=== PATIENT | male | born 1970 | race Hispanic/Latino ===

== ENCOUNTER 2020-12-16 17:46 | Inpatient (IN) | payer MEDICARE, OTHER ==
[~2020-12-16] VITALS: Ht 167.6 cm; Wt 89.8 kg
[2020-12-16] MEDS ORDERED: MORPHINE SULFATE INJ 4 MG/ML INJ 1ML IV STA (18:38)
[2020-12-16] MEDS ORDERED: ONDANSETRON HCL INJ 2MG/ML 2ML 2 MG/ML VIAL IV STA (18:38)
[2020-12-16] MEDS ORDERED: DIATRIZOATE MEGL/DIATRIZOA SOD 30 ML BTL PO ONE (18:50)
[2020-12-16 19:10] LABS: BASOPHILS # (AUTO) 0.1 (0.0-0.1); BASOPHILS % 0.7 % (0.0-1.0); EOSINOPHILS # (AUTO) 0.2 (0.0-0.4); EOSINOPHILS % 1.9 % (0.0-6.0); HEMATOCRIT 32.2 % (38.2-49.6); HEMOGLOBIN 10.6 g/dL (14.0-18.0); LYMPHOCYTES # (AUTO) 1.7 (1.0-3.2); LYMPHOCYTES % 19.5 % (18.0-39.1); MEAN CORPUSCULAR HGB CONC 32.9 g/dL (31-35); MONOCYTES # (AUTO) 0.4 (0.2-0.8); MONOCYTES % 5.2 % (4.4-11.3); NEUTROPHILS # (AUTO) 6.1 (2.1-6.9); NEUTROPHILS % 72.3 % (38.7-80.0); PLATELET COUNT 173 x10e3/uL (140-360); RED BLOOD COUNT 3.66 x10e6/uL (4.3-5.7); RED CELL DISTRIBUTION WIDTH 12.8 % (11.7-14.4)
[2020-12-16 19:25] LABS: AMYLASE 100 U/L (25-125); LIPASE 124 U/L (8-78)
[2020-12-16 19:29] LABS: ALBUMIN 3.4 g/dL (3.5-5.0); CALCIUM 7.5 mg/dL (8.4-10.2); CREATININE, SERUM 6.85 mg/dL (0.72-1.25)
[2020-12-16] MEDS: SODIUM CHLORIDE FLUSH 10 ML SYR INJ PRN ×3 (19:45→23:50)
[2020-12-16 20:29] LABS: CLARITY,URINE SL CLOUDY (CLEAR); COLOR,URINE YELLOW (YELLOW); KETONES,URINE NEGATIVE (NEGATIVE); LEUKOCYTE ESTERASE ,URINE NEGATIVE (NEGATIVE); NITRITE,URINE NEGATIVE (NEGATIVE); PROTEIN,URINE DIPSTICK >=300 (NEGATIVE); URINE UROBILINOGEN 0.2 mg/dL (0.2 - 1)
[2020-12-16 20:43] LABS: BACTERIA,URINE RARE /HPF; EPITHELIAL CELLS,URINE RARE /LPF; WBC,URINE (MAN) 0-5 /HPF (0-5)
[2020-12-16] MEDS ORDERED: DEXTROSE 50% SYRINGE 50 ML IV PRN (21:30)
[2020-12-16] MEDS: CEFEPIME HCL 1GM 1 GM in SODIUM CHLORIDE 0.9% 50ML 50 ML IV SCH (22:13)
[2020-12-16] MEDS: VANCOMYCIN 1GM/NS 250 ML 250 ML IV SCH (22:14)
[2020-12-16] MEDS ORDERED: SODIUM CHLORIDE 0.9% 250ML 250 ML ONE (22:18)
[2020-12-16] MEDS ORDERED: CEFEPIME HCL 1 GM VIAL ONE (22:21)
[2020-12-16] MEDS: ONDANSETRON HCL INJ 2MG/ML 2ML 2 MG/ML VIAL IV PRN (23:59)
[2020-12-16] MEDS: MORPHINE SULFATE INJ 2 MG/ML SYR IV PRN (23:59)
[2020-12-17] MEDS: MORPHINE SULFATE INJ 2 MG/ML SYR IV PRN ×2 (04:55→09:25)
[2020-12-17] MEDS: ONDANSETRON HCL INJ 2MG/ML 2ML 2 MG/ML VIAL IV PRN (04:55)
[2020-12-17] MEDS: INSULIN REGULAR, HUMAN 100 UNIT/1 ML 3ML VIAL SQ SCH ×4 (07:19→20:42)
[2020-12-17] MEDS: CEFEPIME HCL 1GM 1 GM in SODIUM CHLORIDE 0.9% 50ML 50 ML IV SCH ×2 (09:25→21:04)
[2020-12-17] MEDS ORDERED: HYDRALAZINE HCL 20 MG/ML VIAL IV PRN (10:15)
[2020-12-17] MEDS ORDERED: ACETAMINOPHEN 325 MG TAB PO PRN (10:15)
[2020-12-17 14:41] LABS: BODY FLUID APPEARANCE CLEAR; BODY FLUID COLOR YELLOW; BODY FLUID TYPE PERITONEAL
[2020-12-17 17:01] LABS: RBC,BODY FLUID < 2000 cells/uL; WBC,BODY FLUID 52 cells/uL
[2020-12-17] MEDS: MORPHINE SULFATE INJ 4 MG/ML INJ 1ML IV PRN ×2 (17:56→21:59)
[2020-12-17] MEDS: FAMOTIDINE 20 MG TAB PO SCH (17:56)
[2020-12-17 18:20] VITALS: BP 137/90
[2020-12-17 19:28] LABS: EOSINOPHILS,BODY FLUID 6 %; LYMPHOCYTES,BODY FLUID 8 %; NEUTROPHILS,BODY FLUID 18 %
[2020-12-17 20:16] LABS: OTHER CELLS,BODY FLUID 68 %
[2020-12-17 20:34] VITALS: BP 158/94
[2020-12-17 20:40] VITALS: BP 158/94
[2020-12-17] MEDS ORDERED: MELATONIN 5 MG TABLET PO PRN (21:00)
[2020-12-17] MEDS ORDERED: SODIUM CHLORIDE 0.9% 250ML 250 ML ONE (21:01)
[2020-12-17] MEDS: VANCOMYCIN 1GM/NS 250 ML 250 ML IV SCH (21:59)
[2020-12-18] VITALS (8 sets, daily range): BP systolic 132–163; BP diastolic 87–95
[2020-12-18] MEDS: MORPHINE SULFATE INJ 4 MG/ML INJ 1ML IV PRN ×4 (03:13→20:17)
[2020-12-18 05:45] LABS: BASOPHILS # (AUTO) 0.1 (0.0-0.1); BASOPHILS % 1.3 % (0.0-1.0); EOSINOPHILS # (AUTO) 0.3 (0.0-0.4); EOSINOPHILS % 3.6 % (0.0-6.0); HEMATOCRIT 32.8 % (38.2-49.6); HEMOGLOBIN 10.6 g/dL (14.0-18.0); LYMPHOCYTES # (AUTO) 1.9 (1.0-3.2); LYMPHOCYTES % 26.5 % (18.0-39.1); MEAN CORPUSCULAR HGB CONC 32.3 g/dL (31-35); MEAN CORPUSCULAR VOLUME 89.9 fL (81-99); MONOCYTES # (AUTO) 0.6 (0.2-0.8); MONOCYTES % 8.3 % (4.4-11.3); NEUTROPHILS # (AUTO) 4.3 (2.1-6.9); NEUTROPHILS % 60.2 % (38.7-80.0); PLATELET COUNT 140 x10e3/uL (140-360); RED BLOOD COUNT 3.65 x10e6/uL (4.3-5.7); RED CELL DISTRIBUTION WIDTH 12.7 % (11.7-14.4)
[2020-12-18 06:22] LABS: ALBUMIN 3.2 g/dL (3.5-5.0); CALCIUM 7.3 mg/dL (8.4-10.2); CREATININE, SERUM 6.28 mg/dL (0.72-1.25); MAGNESIUM 1.7 MG/DL (1.3-2.1)
[2020-12-18] MEDS: INSULIN REGULAR, HUMAN 100 UNIT/1 ML 3ML VIAL SQ SCH ×4 (07:30→19:55)
[2020-12-18] MEDS: CEFEPIME HCL 1GM 1 GM in SODIUM CHLORIDE 0.9% 50ML 50 ML IV SCH ×2 (08:14→21:56)
[2020-12-18] MEDS: FAMOTIDINE 20 MG TAB PO SCH ×2 (08:14→16:55)
[2020-12-18] MEDS ORDERED: LACTULOSE SYRUP 20 GM/30 ML UDC PO ONE (11:45)
[2020-12-18] MEDS: ONDANSETRON HCL INJ 2MG/ML 2ML 2 MG/ML VIAL IV PRN (20:17)
[2020-12-18] MEDS: VANCOMYCIN 1GM/NS 250 ML 250 ML IV SCH (21:56)
[2020-12-19] VITALS (8 sets, daily range): BP systolic 116–168; BP diastolic 68–92
[2020-12-19] MEDS: ONDANSETRON HCL INJ 2MG/ML 2ML 2 MG/ML VIAL IV PRN ×3 (00:45→18:47)
[2020-12-19] MEDS: MORPHINE SULFATE INJ 4 MG/ML INJ 1ML IV PRN ×3 (00:45→18:47)
[2020-12-19] MEDS: INSULIN REGULAR, HUMAN 100 UNIT/1 ML 3ML VIAL SQ SCH ×4 (07:30→21:00)
[2020-12-19] MEDS: CEFEPIME HCL 1GM 1 GM in SODIUM CHLORIDE 0.9% 50ML 50 ML IV SCH (08:57)
[2020-12-19] MEDS: FAMOTIDINE 20 MG TAB PO SCH ×2 (08:57→16:35)
[2020-12-20 00:54] VITALS: BP 160/104
[2020-12-20 01:00] VITALS: BP 160/90
[2020-12-20] MEDS: ONDANSETRON HCL INJ 2MG/ML 2ML 2 MG/ML VIAL IV PRN ×3 (01:49→09:54)
[2020-12-20] MEDS: MORPHINE SULFATE INJ 4 MG/ML INJ 1ML IV PRN ×3 (01:50→09:54)
[2020-12-20 05:59] VITALS: BP 176/90
[2020-12-20 06:17] LABS: BASOPHILS % 0.4 % (0.0-1.0); EOSINOPHILS # (AUTO) 0.2 (0.0-0.4); EOSINOPHILS % 2.6 % (0.0-6.0); HEMATOCRIT 31.1 % (38.2-49.6); HEMOGLOBIN 10.1 g/dL (14.0-18.0); LYMPHOCYTES # (AUTO) 0.9 (1.0-3.2); LYMPHOCYTES % 11.3 % (18.0-39.1); MEAN CORPUSCULAR HEMOGLOBIN 29.1 pg (28-32); MEAN CORPUSCULAR HGB CONC 32.5 g/dL (31-35); MEAN CORPUSCULAR VOLUME 89.6 fL (81-99); MONOCYTES # (AUTO) 0.7 (0.2-0.8); MONOCYTES % 8.4 % (4.4-11.3); NEUTROPHILS # (AUTO) 6.3 (2.1-6.9); NEUTROPHILS % 76.9 % (38.7-80.0); PLATELET COUNT 150 x10e3/uL (140-360); RED BLOOD COUNT 3.47 x10e6/uL (4.3-5.7); RED CELL DISTRIBUTION WIDTH 12.6 % (11.7-14.4)
[2020-12-20 07:00] LABS: ANION GAP 18.8 mmol/L (8-16); CALCIUM 7.6 mg/dL (8.4-10.2); CREATININE, SERUM 6.54 mg/dL (0.72-1.25); POTASSIUM 3.8 mmol/L (3.5-5.1)
[2020-12-20] MEDS: INSULIN REGULAR, HUMAN 100 UNIT/1 ML 3ML VIAL SQ SCH ×3 (07:30→16:19)
[2020-12-20 08:15] VITALS: BP 156/88
[2020-12-20] MEDS: FAMOTIDINE 20 MG TAB PO SCH (08:25)
[2020-12-20 09:50] VITALS: BP 156/88
[2020-12-20 11:00] VITALS: BP 156/88
== END 2020-12-20 16:56 | disposition home or self-care (01) | DRG 438 ==
LOC: ER 18:37 → ERHOLD 21:31 → MED/SURG3 12-17 15:55
PROVIDERS: ADMIT Internal Medicine; ATTEND Internal Medicine
PROC: 3E1M39Z Irrigation of Peritoneal Cavity using Dialysate, Percutaneous Approach (ICD-10-PCS; principal; 2020-12-17)
PROC: 3E1M39Z Irrigation of Peritoneal Cavity using Dialysate, Percutaneous Approach (ICD-10-PCS; 2020-12-19)
DX: K85.90 Acute pancreatitis without necrosis or infection, unspecified (principal); N18.6 End stage renal disease; I12.0 Hypertensive chronic kidney disease with stage 5 chronic kidney disease or end stage renal disease; R18.8 Other ascites; K66.8 Other specified disorders of peritoneum; E11.22 Type 2 diabetes mellitus with diabetic chronic kidney disease; Z99.2 Dependence on renal dialysis; E11.65 Type 2 diabetes mellitus with hyperglycemia; Z20.822 Contact with and (suspected) exposure to COVID-19; G47.00 Insomnia, unspecified
CPT/HCPCS: 36415; 74018; 74176; 80048; 80053; 80202; 81001; 82150; 82948; 83690; 83735; 85025; 87040; 87070; 87205; 89051; 93005; 96374; 96375; 96376; 99284; J0692; J1817; J2270; J2405; J3370; J7050; U0002

== ENCOUNTER 2022-08-24 14:54 | Inpatient (IN) | payer MEDICARE ==
[~2022-08-24] VITALS: Ht 167.6 cm; Wt 89.8 kg
[2022-08-24] MEDS ORDERED: Vancomycin IV 1 GM in SODIUM CHLORIDE 0.9% 250ML 250 ML IV ONE (15:30)
[2022-08-24] MEDS ORDERED: ONDANSETRON HCL INJ 2MG/ML 2ML 2 MG/ML VIAL IV PRN (15:30)
[2022-08-24] MEDS ORDERED: Morphine 4mg INJECTION 4 MG/ML INJ IV PRN (15:30)
[2022-08-24] MEDS ORDERED: GENTAMICIN 120MG/NS 100ML 100 ML IV ONE (15:45)
[2022-08-24 15:48] LABS: BASOPHILS % 0.2 % (0.0-1.0); EOSINOPHILS # (AUTO) 0.2 (0.0-0.4); EOSINOPHILS % 1.4 % (0.0-6.0); HEMATOCRIT 29.1 % (38.2-49.6); HEMOGLOBIN 9.1 g/dL (14.0-18.0); LYMPHOCYTES % 7.8 % (18.0-39.1); MEAN CORPUSCULAR HEMOGLOBIN 30.2 pg (28-32); MEAN CORPUSCULAR HGB CONC 31.3 g/dL (31-35); MEAN CORPUSCULAR VOLUME 96.7 fL (81-99); MONOCYTES # (AUTO) 0.9 (0.2-0.8); MONOCYTES % 6.4 % (4.4-11.3); NEUTROPHILS % 83.4 % (38.7-80.0); PLATELET COUNT 211 x10e3/uL (140-360); RED BLOOD COUNT 3.01 x10e6/uL (4.3-5.7); RED CELL DISTRIBUTION WIDTH 11.9 % (11.7-14.4)
[2022-08-24 16:07] LABS: ALANINE AMINOTRANSFERASE 38 IU/L (0-55); ALBUMIN 2.8 g/dL (3.5-5.0); ALBUMIN/GLOBULIN RATIO 0.7 (0.8-2.0); ALKALINE PHOSPHATASE 91 IU/L (40-150); ANION GAP 25.5 mmol/L (8-16); BLOOD UREA NITROGEN 47 mg/dL (7-26); BUN/CREATININE RATIO 6 (6-25); CALCIUM 9.1 mg/dL (8.4-10.2); CARBON DIOXIDE 21 mmol/L (22-29); CHLORIDE 94 mmol/L (98-107); CREATININE, SERUM 8.24 mg/dL (0.72-1.25); GLUCOSE 85 mg/dL (74-118); POTASSIUM 4.5 mmol/L (3.5-5.1); SODIUM 136 mmol/L (136-145)
[2022-08-24] MEDS ORDERED: SODIUM CHLORIDE FLUSH 10 ML SYR INJ PRN (16:45)
[2022-08-24 17:59] VITALS: BP 126/95
[2022-08-24 18:44] VITALS: BP 126/95
[2022-08-24 20:00] VITALS: BP 139/85
[2022-08-24] MEDS ORDERED: HYDRALAZINE HCL 20 MG/ML VIAL IV PRN (20:00)
[2022-08-24] MEDS ORDERED: ACETAMINOPHEN 325 MG TAB PO PRN (20:00)
[2022-08-24] MEDS: Morphine 4mg INJECTION 4 MG/ML INJ IV PRN (20:35)
[2022-08-24 22:20] VITALS: BP 139/85
[2022-08-25] VITALS (8 sets, daily range): BP systolic 116–141; BP diastolic 54–81
[2022-08-25] MEDS: Morphine 4mg INJECTION 4 MG/ML INJ IV PRN ×5 (00:42→18:32)
[2022-08-25 05:33] LABS: BASOPHILS % 0.2 % (0.0-1.0); EOSINOPHILS # (AUTO) 0.1 (0.0-0.4); EOSINOPHILS % 1.4 % (0.0-6.0); HEMATOCRIT 28.4 % (38.2-49.6); HEMOGLOBIN 8.7 g/dL (14.0-18.0); LYMPHOCYTES # (AUTO) 0.8 (1.0-3.2); LYMPHOCYTES % 9.2 % (18.0-39.1); MEAN CORPUSCULAR HEMOGLOBIN 30.5 pg (28-32); MEAN CORPUSCULAR HGB CONC 30.6 g/dL (31-35); MEAN CORPUSCULAR VOLUME 99.6 fL (81-99); MONOCYTES # (AUTO) 0.5 (0.2-0.8); MONOCYTES % 5.6 % (4.4-11.3); NEUTROPHILS # (AUTO) 7.1 (2.1-6.9); NEUTROPHILS % 83.1 % (38.7-80.0); PLATELET COUNT 188 x10e3/uL (140-360); RED BLOOD COUNT 2.85 x10e6/uL (4.3-5.7); RED CELL DISTRIBUTION WIDTH 12.2 % (11.7-14.4)
[2022-08-25 06:05] LABS: ANION GAP 23.8 mmol/L (8-16); CALCIUM 8.8 mg/dL (8.4-10.2); CREATININE, SERUM 8.39 mg/dL (0.72-1.25); POTASSIUM 4.8 mmol/L (3.5-5.1)
[2022-08-25 06:13] LABS: THYROID STIMULATING HORMONE 3.174 uIU/mL (0.350-4.940)
[2022-08-25] MEDS: ONDANSETRON HCL INJ 2MG/ML 2ML 2 MG/ML VIAL IV PRN ×3 (09:44→18:32)
[2022-08-25] MEDS: SEVELAMER CARBONATE 800 MG TAB PO SCH ×2 (12:46→17:15)
[2022-08-25] MEDS: LIDOCAINE HCL 5% OINMENT 35.44 GM TUBE TP SCH (17:00)
[2022-08-25] MEDS ORDERED: SEVELAMER CARB800 MG PO (20:39)
[2022-08-25] MEDS ORDERED: CARVEDILOL12.5 MG PO (20:39)
[2022-08-25] MEDS ORDERED: FUROSEMIDE40 MG PO (20:39)
[2022-08-25] MEDS ORDERED: CALCIUM ACETAT667 MG PO (20:39)
[2022-08-25] MEDS ORDERED: LOSARTAN POTASS25 MG PO (20:39)
[2022-08-25] MEDS ORDERED: SENSIPAR30 MG PO (20:39)
[2022-08-26] VITALS (7 sets, daily range): BP systolic 108–132; BP diastolic 65–73
[2022-08-26] MEDS: ONDANSETRON HCL INJ 2MG/ML 2ML 2 MG/ML VIAL IV PRN ×2 (02:30→06:34)
[2022-08-26] MEDS: Morphine 4mg INJECTION 4 MG/ML INJ IV PRN ×6 (02:30→22:15)
[2022-08-26] MEDS: SEVELAMER CARBONATE 800 MG TAB PO SCH ×3 (08:13→17:33)
[2022-08-26] MEDS: LIDOCAINE HCL 5% OINMENT 35.44 GM TUBE TP SCH ×2 (09:00→17:00)
[2022-08-26 10:02] LABS: ANION GAP 21.7 mmol/L (8-16); CALCIUM 8.8 mg/dL (8.4-10.2); CREATININE, SERUM 7.14 mg/dL (0.72-1.25); POTASSIUM 4.7 mmol/L (3.5-5.1)
[2022-08-26] MEDS ORDERED: SODIUM CHLORIDE 0.9% 1000ML 0 ML ONE (14:33)
[2022-08-26] MEDS ORDERED: SODIUM CHLORIDE 0.9% 1000ML 2,000 ML ONE (15:25)
[2022-08-26] MEDS ORDERED: ACETAMINOPHEN325 M1 PO (20:42)
[2022-08-26] MEDS ORDERED: ZOSYN 2.252.25 GM/50 IV (20:42)
[2022-08-26] MEDS ORDERED: Sodium Chloride Flush INJ (20:42)
[2022-08-26] MEDS ORDERED: LIDOCAINE1 EA TP (20:42)
[2022-08-26] MEDS ORDERED: ONDANSETRON4 MG/2 M1 IV (20:42)
[2022-08-26] MEDS ORDERED: HYDRALAZIN20 MG/1 ML IV (20:42)
[2022-08-26] MEDS ORDERED: Morphine 4mg INJECTION IV (20:42)
== END 2022-08-27 00:28 | disposition short-term general hospital (02) | DRG 871 ==
LOC: ER 15:01 → ERHOLD 16:34 → MED/SURG2 17:16 → UNDODISIN 08-26 10:20
PROVIDERS: ADMIT Internal Medicine; ATTEND Internal Medicine
PROC: 5A1D70Z Performance of Urinary Filtration, Intermittent, Less than 6 Hours Per Day (ICD-10-PCS; principal; 2022-08-25)
PROC: 3E03329 Introduction of Other Anti-infective into Peripheral Vein, Percutaneous Approach (ICD-10-PCS; 2022-08-25)
DX: A41.01 Sepsis due to Methicillin susceptible Staphylococcus aureus (principal); N18.6 End stage renal disease; L02.212 Cutaneous abscess of back [any part, except buttock and flank]; I12.0 Hypertensive chronic kidney disease with stage 5 chronic kidney disease or end stage renal disease; C85.10 Unspecified B-cell lymphoma, unspecified site; B95.61 Methicillin susceptible Staphylococcus aureus infection as the cause of diseases classified elsewhere; Z99.2 Dependence on renal dialysis; E11.22 Type 2 diabetes mellitus with diabetic chronic kidney disease; D63.1 Anemia in chronic kidney disease; F17.210 Nicotine dependence, cigarettes, uncomplicated
CPT/HCPCS: 0223U; 36415; 71045; 72131; 80048; 80053; 80061; 82948; 83036; 83605; 84443; 85025; 87040; 87071; 87186; 87205; 93005; 94799; 99284; J0692; J1580; J2270; J2405; J2543; J3370; J7030; J7050

== ENCOUNTER 2022-09-28 10:16 | Observation (INO) | payer MEDICARE ==
[~2022-09-28] VITALS: Ht 167.6 cm; Wt 89.8 kg
[~2022-09-28 10:16] MED LIST: ACETAMINOPHEN325 M1 PO; CALCIUM ACETAT667 MG PO; CARVEDILOL12.5 MG PO; FUROSEMIDE40 MG PO; HYDRALAZIN20 MG/1 ML IV; LIDOCAINE1 EA TP; LOSARTAN POTASS25 MG PO; Morphine 4mg INJECTION IV; ONDANSETRON4 MG/2 M1 IV; SENSIPAR30 MG PO; SEVELAMER CARB800 MG PO; Sodium Chloride Flush INJ; ZOSYN 2.252.25 GM/50 IV
[2022-09-28] MEDS ORDERED: SODIUM CHLORIDE FLUSH 10 ML SYR IV PRN (10:30)
[2022-09-28 10:33] LABS: BASOPHILS # (AUTO) 0.1 (0.0-0.1); BASOPHILS % 0.6 % (0.0-1.0); EOSINOPHILS # (AUTO) 0.3 (0.0-0.4); EOSINOPHILS % 2.6 % (0.0-6.0); HEMATOCRIT 25.8 % (38.2-49.6); HEMOGLOBIN 8.7 g/dL (14.0-18.0); LYMPHOCYTES # (AUTO) 1.7 (1.0-3.2); LYMPHOCYTES % 18.4 % (18.0-39.1); MEAN CORPUSCULAR HEMOGLOBIN 31.1 pg (28-32); MEAN CORPUSCULAR HGB CONC 33.7 g/dL (31-35); MEAN CORPUSCULAR VOLUME 92.1 fL (81-99); MONOCYTES # (AUTO) 0.6 (0.2-0.8); MONOCYTES % 5.8 % (4.4-11.3); NEUTROPHILS # (AUTO) 6.8 (2.1-6.9); NEUTROPHILS % 72.3 % (38.7-80.0); PLATELET COUNT 127 x10e3/uL (140-360); RED CELL DISTRIBUTION WIDTH 13.2 % (11.7-14.4)
[2022-09-28 10:48] LABS: ALANINE AMINOTRANSFERASE < 6 IU/L (0-55); ALBUMIN 3.4 g/dL (3.5-5.0); ALBUMIN/GLOBULIN RATIO 1.1 (0.8-2.0); ALKALINE PHOSPHATASE 77 IU/L (40-150); ANION GAP 20.9 mmol/L (8-16); BLOOD UREA NITROGEN 45 mg/dL (7-26); BUN/CREATININE RATIO 5 (6-25); CALCIUM 8.9 mg/dL (8.4-10.2); CARBON DIOXIDE 22 mmol/L (22-29); CHLORIDE 101 mmol/L (98-107); CREATININE, SERUM 9.62 mg/dL (0.72-1.25); GLUCOSE 105 mg/dL (74-118); POTASSIUM 4.9 mmol/L (3.5-5.1); SODIUM 139 mmol/L (136-145)
[2022-09-28] MEDS ORDERED: ASPIRIN 81 MG CHEW TAB PO ONE (11:30)
[2022-09-28] MEDS ORDERED: SODIUM CHLORIDE FLUSH 10 ML SYR INJ PRN (11:30)
[2022-09-28] MEDS ORDERED: SODIUM CHLORIDE 0.9% 1000ML 2,000 ML ONE (12:56)
[2022-09-28] MEDS ORDERED: IOPAMIDOL 370 MG/ML 100 ML INFUS..BTL INJ ONE (15:17)
[2022-09-28 19:14] LABS: ALBUMIN 3.6 g/dL (3.5-5.0); ALKALINE PHOSPHATASE 78 IU/L (40-150); BILIRUBIN,DIRECT 0.2 mg/dL (0.0-0.5)
[2022-09-28 19:17] LABS: ALANINE AMINOTRANSFERASE < 6 IU/L (0-55)
[2022-09-28 19:23] LABS: CREATINE KINASE MB 2.3 ng/mL (0-5.0)
[2022-09-28 20:47] VITALS: BP_SYST 108; BP_SYST 138; BP_DIAS 75; BP_DIAS 82
[2022-09-28] MEDS ORDERED: HYDRALAZINE HCL 20 MG/ML VIAL IV PRN (23:45)
[2022-09-28] MEDS ORDERED: ACETAMINOPHEN 325 MG TAB PO PRN (23:45)
[2022-09-28] MEDS ORDERED: ONDANSETRON HCL INJ 2MG/ML 2ML 2 MG/ML VIAL IV PRN (23:45)
[2022-09-29 00:31] VITALS: BP 148/79
[2022-09-29 04:00] VITALS: BP 134/76
[2022-09-29 05:49] LABS: BASOPHILS % 0.5 % (0.0-1.0); EOSINOPHILS # (AUTO) 0.1 (0.0-0.4); EOSINOPHILS % 1.6 % (0.0-6.0); HEMATOCRIT 24.8 % (38.2-49.6); LYMPHOCYTES # (AUTO) 1.3 (1.0-3.2); LYMPHOCYTES % 16.1 % (18.0-39.1); MEAN CORPUSCULAR HEMOGLOBIN 30.4 pg (28-32); MEAN CORPUSCULAR HGB CONC 32.3 g/dL (31-35); MEAN CORPUSCULAR VOLUME 94.3 fL (81-99); MONOCYTES # (AUTO) 0.5 (0.2-0.8); MONOCYTES % 6.1 % (4.4-11.3); NEUTROPHILS # (AUTO) 5.9 (2.1-6.9); NEUTROPHILS % 75.2 % (38.7-80.0); PLATELET COUNT 117 x10e3/uL (140-360); RED BLOOD COUNT 2.63 x10e6/uL (4.3-5.7); RED CELL DISTRIBUTION WIDTH 13.3 % (11.7-14.4)
[2022-09-29 06:09] LABS: ALBUMIN 3.2 g/dL (3.5-5.0); ALKALINE PHOSPHATASE 77 IU/L (40-150); ANION GAP 18.1 mmol/L (8-16); BLOOD UREA NITROGEN 30 mg/dL (7-26); BUN/CREATININE RATIO 4 (6-25); CALCIUM 8.9 mg/dL (8.4-10.2); CARBON DIOXIDE 24 mmol/L (22-29); CHLORIDE 103 mmol/L (98-107); GLUCOSE 94 mg/dL (74-118); POTASSIUM 4.1 mmol/L (3.5-5.1); SODIUM 141 mmol/L (136-145)
[2022-09-29 06:11] LABS: ALANINE AMINOTRANSFERASE < 6 IU/L (0-55)
[2022-09-29 06:35] LABS: CREATINE KINASE MB 1.4 ng/mL (0-5.0)
[2022-09-29 07:46] VITALS: BP 118/60
[2022-09-29] MEDS ORDERED: CINACALCET 30 MG TAB PO SCH (09:00)
[2022-09-29] MEDS ORDERED: ONDANSETRON HCL 4 MG ORAL DISINTEGRATING TAB SL PRN ×2 (09:00)
[2022-09-29] MEDS ORDERED: NICOTINE 7 MG PATCH TOP SCH (09:00)
[2022-09-29] MEDS ORDERED: LIDOCAINE HCL 5% OINMENT 35.44 GM TUBE TP SCH (09:00)
[2022-09-29] MEDS: SEVELAMER CARBONATE 800 MG TAB PO SCH ×2 (09:34→12:00)
[2022-09-29] MEDS: CALCIUM ACETATE 667 MG GELCAP PO SCH ×2 (09:34→12:00)
[2022-09-29 09:56] VITALS: BP 118/60
[2022-09-29] MEDS ORDERED: SODIUM CHLORIDE 0.9% 1000ML 2,000 ML ONE (10:10)
[2022-09-29 11:23] VITALS: BP 151/90
[2022-09-29] MEDS ORDERED: NICODERM CQ1 EACH TOP (15:45)
[2022-09-29] MEDS ORDERED: ONDANSETRON ODT4 MG SL (15:45)
[2022-09-29 15:49] VITALS: BP 98/50
[2022-09-29 16:22] LABS: CREATINE KINASE MB 1.4 ng/mL (0-5.0)
== END 2022-09-29 16:16 | disposition home or self-care (01) ==
LOC: ER 10:18 → ERHOLD 11:33 → MED/SURG 19:50
PROVIDERS: ADMIT Internal Medicine; ATTEND Internal Medicine
DX: I12.0 Hypertensive chronic kidney disease with stage 5 chronic kidney disease or end stage renal disease (principal); E11.22 Type 2 diabetes mellitus with diabetic chronic kidney disease; N18.6 End stage renal disease; Z99.2 Dependence on renal dialysis; Z79.4 Long term (current) use of insulin; Z20.822 Contact with and (suspected) exposure to COVID-19; D63.1 Anemia in chronic kidney disease; C85.10 Unspecified B-cell lymphoma, unspecified site; F17.200 Nicotine dependence, unspecified, uncomplicated; J81.1 Chronic pulmonary edema; E87.8 Other disorders of electrolyte and fluid balance, not elsewhere classified; E21.3 Hyperparathyroidism, unspecified
CPT/HCPCS: 36415 ×2; 71045 ×2; 71260; 80053 ×2; 80076; 82550 ×2; 82553 ×2; 83880; 84484 ×2; 85025 ×2; 85379; 86704; 86706; 87340; 90970; 93005 ×2; 94760; 94799 ×2; 99284; G0378 ×2; J7030 ×2; Q9967; U0002

== ENCOUNTER 2025-01-18 14:21 | Emergency (ER) | payer MEDICARE ==
[~2025-01-18] VITALS: Ht 167.6 cm; Wt 81.6 kg
[~2025-01-18 14:21] MED LIST changes: +NICODERM CQ1 EACH TOP; +ONDANSETRON ODT4 MG SL
[2025-01-18 14:40] VITALS: PULSE 99; RESP 16; TEMP 98.6; O2SAT 99
== END 2025-01-18 15:25 | disposition home or self-care (01) ==
LOC: ER 14:52
DX: R22.32 Localized swelling, mass and lump, left upper limb (principal); I12.0 Hypertensive chronic kidney disease with stage 5 chronic kidney disease or end stage renal disease; E11.22 Type 2 diabetes mellitus with diabetic chronic kidney disease; N18.6 End stage renal disease; Z99.2 Dependence on renal dialysis; Z85.72 Personal history of non-Hodgkin lymphomas; F17.210 Nicotine dependence, cigarettes, uncomplicated
CPT/HCPCS: 99282

== ENCOUNTER 2025-03-20 15:49 | Emergency (ER) | payer MEDICARE ==
[~2025-03-20] VITALS: Ht 167.6 cm; Wt 81.6 kg
[2025-03-20 16:00] VITALS: RESP 18; TEMP 98.3
[2025-03-20 17:00] VITALS: PULSE 95; O2SAT 99
[2025-03-20] MEDS ORDERED: DOXYCYCLINE HY100 MG PO (17:26)
== END 2025-03-20 17:33 | disposition home or self-care (01) ==
LOC: ER 17:04
DX: L72.3 Sebaceous cyst (principal); C85.80 Other specified types of non-Hodgkin lymphoma, unspecified site; I12.0 Hypertensive chronic kidney disease with stage 5 chronic kidney disease or end stage renal disease; E11.22 Type 2 diabetes mellitus with diabetic chronic kidney disease; N18.6 End stage renal disease; Z99.2 Dependence on renal dialysis; F17.210 Nicotine dependence, cigarettes, uncomplicated
CPT/HCPCS: 99282